=== PATIENT | female | born 1940 | race Caucasian/White ===

== ENCOUNTER 2018-07-04 12:11 | Outpatient (REF) | payer MEDICARE, OTHER, SELFPAY ==
[2018-07-04 20:25] LABS: Anion Gap 7.2 mmol/L (3-11); BUN 14 mg/dL (7-18); CO2 30.8 mmol/L (21.0-32.0); CREATININE 0.95 mg/dL (0.55-1.02); Chloride 99 mmol/L (98-107); Estimated GFR 57.19 (mL/min/1.73m2); Glucose 312 mg/dL (70-100); Magnesium 1.4 mg/dL (1.8-2.4); Potassium 5.8 mmol/L (3.5-5.1); Sodium 137 mmol/L (136-145)
[2018-07-04 20:26] LABS: Iron 233 ug/dL (50-175); Total Iron Binding Capacity 346 ug/dL (250-450); Transferrin Sat 67 % (15-50)
== END 2018-07-04 12:31 ==
LOC: NCHCN 12:11
PROVIDERS: PCP Physician Assistant; Visit Provider Internal Medicine
DX: E83.42 Hypomagnesemia (principal); F03.90 Unspecified dementia, unspecified severity, without behavioral disturbance, psychotic disturbance, mood disturbance, and anxiety; G20 Parkinson's disease; E11.65 Type 2 diabetes mellitus with hyperglycemia
CPT/HCPCS: 80048; 83540; 83550; 83735

== ENCOUNTER 2018-08-01 13:06 | Outpatient (REF) | payer MEDICARE, OTHER, SELFPAY | END 2018-08-01 13:26 | LOC: NCHCN 13:06 | PROVIDERS: PCP Physician Assistant; Visit Provider Internal Medicine | DX: E87.5 Hyperkalemia (principal) | CPT/HCPCS: 84132 ==